=== PATIENT | male | born 1990 | race Caucasian/White ===

== ENCOUNTER 2025-04-16 20:28 | Emergency (ER) | payer MEDICARE, OTHER, SELFPAY ==
[2025-04-16 20:35] VITALS: BP 151/89
[2025-04-16 23:14] VITALS: BP 128/87
[2025-04-17] VITALS: BP 124/88
[2025-04-17] MEDS: DUONEB 3 ML INH (00:14)
--- NOTE | 2025-04-17 00:20 | ED.GENMED ---
History of Present Illness
General
Chief Complaint: Cough
Source: patient
Exam Limitations: none
Time Seen by Provider: 04/16/25 23:17
Nursing documentation reviewed up to this point in time: agreed with
History of Present Illness
History of Present Illness:
Patient to ED wt complaint of intermittent cough 'for months'. He was seen a few months ago by PCP, told if it got worse to come to ED. He feels that the cough is occuring more freqently. Nonproductive cough Once he starts to cough he has
difficult stopping cough. Denes fever/chills, recent illness.
Past History
Past History
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
ED Past Surgical History: Tonsilectomy (2015 with sinus surgery)
Patient has exhibited threatening behavior?: No
Social History
Tobacco: Non-smoker
Alcohol: None
Drug: None
Personal: Single
Living: with family
Employment: Employed (Part-time employed [employer])
Family History
Family History: Other (Noncontributory)
Review of Systems
Review of Systems
Allergies reviewed?: Yes
All Other Systems: ROS reviewed and negative except as documented in HPI and ROS
Constitutional: Reports no symptoms
EENT: Reports no symptoms
Respiratory: Reports cough
Cardiac: Reports no symptoms
ABD/GI: Reports no symptoms
: Reports no symptoms
Musculoskeletal: Reports no symptoms
Skin: Reports no symptoms
Neurological: Reports no symptoms
Psychiatric: Reports no symptoms
Phy Exam
General Physical Exam
General Presentation: well appearing and no apparent distress
General age: appears stated age
ENT Exam
ENT Exam: EOMI, pharynx normal and swallowing well
Cardiovascular Exam
Cardiovascular Exam: regular rate/rhythm and no edema
Pulmonary Exam
Pulmonary Exam: no respiratory distress and other (few scattered expiratory wheezes bilaterally)
Musculoskeletal Exam
Musculoskeletal Exam: full ROM and neuro vasc intact
Skin Exam
Skin Exam: normal color, warm/dry and no rash
Psychiatric Exam
Psychiatric Exam: normal mood/affect
Course
Orders/Labs/Results
Orders:
Orders
04/16/25 20:38
CR Chest - 2 Views Urgent
Comment:
Reason For Exam: cough
04/16/25 23:46
Ipratropium/Albuterol Sulfate [Duoneb] 3 ml INH R NOW STA
Vital Signs
Initial and Last Documented VS:
Initial Vital Signs
Temp Pulse Resp BP Pulse Ox
98.2 F 71 20 151/89 97
04/16/25 20:35 04/16/25 20:35 04/16/25 20:35 04/16/25 20:35 04/16/25 20:35
Last Documented Vital Signs
Temp Pulse Resp BP Pulse Ox
98.0 F 71 20 128/87 99
04/16/25 23:22 04/16/25 20:35 04/16/25 20:35 04/16/25 23:14 04/17/25 00:27
*Radiology
Radiology exam reviewed: radiology read reviewed
*Pulse Oximetry
SaO2: 99
Oxygen Mode of Delivery: Room air
Patient hypoxic: no
*Critical Care Note
Total Time (30-74mins, 75-104mins- exclusive of procedures): Not Applicable
Update Note
Update Note:
patient to ED with report of intermittent coughing episodes. Nonproductive cough. No associated fever/chills. No cp/pressure. VSS, he remains afebrile. Lungs with a few scattered expiratory wheezes bilaterally. Duoneb given in ED. Pulse ox
remains 98% RA. Recommend trial of claritan for envirnmental allergies, nasocort for post nasal drip, albuterol MDI prn cough/wheezing. Will discharge home. He will follow up with PCP. Mita instructions on s/s to return to ED and he is
agreeable to plan.
ED Attending Note
-
Portions of this chart may have been created with voice recognition software.� Occasional wrong word or��sound alike� substitutions may have occurred due to the inherent limitations of voice recognition software.
Discharge Plan
Departure
Patient with high blood pressure during this ER visit?: No
Condition: Good
Covid-19: Not Applicable
Discharge Problem:
Cough
Instructions: Cough in adults - ED (DC)
Prescriptions:
New
loratadine [Claritin] 10 mg tablet
10 mg PO DAILY Qty: 30 0RF
triamcinolone acetonide [Nasacort] 55 mcg aerosol,spray
1 spray intranasal DAILY Qty: 16.9 0RF
albuterol sulfate [Ventolin HFA] 90 mcg/actuation HFA aerosol inhaler
2 puff inhalation QID PRN (Reason: shortness of breath or wheezing) Qty: 8.5 0RF
No Action
ciprofloxacin HCl [Cipro] 500 MG tablet
500 mg PO BID Qty: 14 0RF
clindamycin HCl 300 MG capsule
300 mg PO TID Qty: 29 0RF
azithromycin 250 MG tablet
250 mg PO DAILY Qty: 4 0RF
cefuroxime axetil 500 MG tablet
500 mg PO BID Qty: 14 0RF
amoxicillin 500 MG capsule
500 mg PO Q8H Qty: 30 0RF
amoxicillin [Amoxil] 875 MG tablet
875 mg PO BID Qty: 14 0RF
fluticasone propionate 1 SPRAY spray,suspension
2 spray intranasal DAILY Qty: 1 0RF
Rx Instructions:
2 sprays each nostril
amoxicillin-pot clavulanate 1 TABLET tablet
1 tab PO Q12 Qty: 13 0RF
Referrals:
Nikos Edwards MD [Family Provider, [facility]] - Follow up in 2-3 days
Activity Restrictions/Additional Instructions:
Return to the emergency department immediately for any changes in/worsening of your symptoms.
Interventions
Interventions:
*Risk Screen - Suicide Last Done: 04/16/25 23:22
*General Assessment Last Done: 04/16/25 20:35
*Neglect/Abuse Screening Last Done: 04/16/25 23:22
*ED- Fall Risk Assessment Last Done: 04/16/25 23:22
*ED COVID-19 Vaccine History Last Done: 04/16/25 23:22
ED- Pulmonary Assessment Last Done: 04/16/25 23:22
Discharge Date and Time
Print Language: POLISH
== END 2025-04-17 01:41 | disposition home or self-care (01) ==
LOC: EMR 20:28
PROVIDERS: EMERGENCY PHYSICIAN Emergency Medicine; FAMILY PHYSICIAN Family Medicine
DX: R05.9 Cough, unspecified (principal); R06.2 Wheezing
CPT/HCPCS: 94640; 99283; 71046